=== PATIENT | female | born 1965 ===

== ENCOUNTER 2025-04-07 20:39 | Emergency (ER) | payer MEDICARE, SELFPAY ==
[2025-04-07] VITALS (13 sets, daily range): BP systolic 115–169; BP diastolic 71–98; PULSE 64–74; RESP 14–25; TEMP 36.6; O2SAT 97–100; BMI 39.6
--- NOTE | 2025-04-07 21:00 | EKG_ITS ---
[address] [address] Test Date: 2025-04-07 Pat Name: Jaylene Canseco Department: Room: Gender: Female Oven Attendant: VIOLETA : 1967-02-22 Requested By: Order Number: [id number] Reading MD: Alvaro Busch MD Measurements Intervals [place] Rate: 69 P: [place]: 164 QRS: -33 QRSD: 78 T: 173 QT: 400 QTc: 428 Interpretive Statements Normal sinus rhythm Left axis deviation Lateral infarct , age undetermined Inferior infarct , age undetermined NO PRIOR TRACING Electronically Signed On 04-08-2025 7:35:30 PDT by Alvaro Busch MD
--- NOTE | 2025-04-07 21:00 | DI.CT.S_ITS ---
PROCEDURE: CT STROKE INDICATIONS: Acute right-sided neurologic issues associated with severe TECHNIQUE: Noncontrast 4.5 mm thick angled axial sections acquired from the foramen magnum to the vertex, with coronal reformats. For radiation dose reduction, the following was used: automated exposure control, adjustment of mA and/or kV according to patient size. COMPARISON: None. FINDINGS: Image quality: CSF spaces: Basal cisterns are patent. No extra-axial fluid collections. Ventricles are normal in size and shape. Brain: No midline shift. No intracranial mass effect or hemorrhage. Mena- white matter interface is normal. There are atherosclerotic calcifications of the intracranial segments of the internal carotid arteries. Skull and face: Calvarium and visualized facial bones are intact, without suspicious lesions. Sinuses: Visualized sinuses and mastoids are clear. IMPRESSION: CT head without acute intracranial abnormalities. Findings were discussed with Dr. Senior at 2129 hrs. This study fulfills neurological imaging criteria for inclusion or exclusion of acute stroke therapies based on available published neurological imaging guidelines. Dictated by: Jose Schmid M.D. on 04/07/2025 at 21:28 Approved by: Jose Schmid M.D. on 04/07/2025 at 21:32
--- NOTE | 2025-04-07 21:01 | ED.HA ---
HPI - Headache General Chief Complaint: Headache Stated Complaint: vertigo Time Seen by Provider: 04/07/25 20:59 Mode of arrival: EMS History of Present Illness HPI Narrative: 58-year-old woman brought in by medics, was sitting on the couch playing games she acute onset of significant popping sensation needle like pain in the ear, severe tinnitus, vertigo to the point she is having trouble not vomiting, right pain in the face, headache. She feels that she was hyperventilating and was noticing some tingling on the right side of her lips isn't sure if that continues at this time. Fast negative per medics. Difficultly blood shot eyes. Code stroke was called Related Data Home Medications ?Medication ?Instructions ?Recorded ?Confirmed montelukast .ROUTE 04/07/25 valsartan PO 04/07/25 Allergies Allergy/AdvReac Type Severity Reaction Status Date / Time ibuprofen (From Motrin) Allergy Unknown Verified 04/07/25 20:48 Penicillins Allergy Unknown Verified 04/07/25 20:48 Review of Systems Review of Systems Narrative: Pertinent positive and negative findings as per HPI Exam Initial Vital Signs Initial Vital Signs: Vital Signs Temperature 97.8 F 04/07/25 20:38 Pulse Rate 69 04/07/25 20:38 Respiratory Rate 20 04/07/25 20:38 Blood Pressure 146/84 H 04/07/25 20:38 Pulse Oximetry 100 04/07/25 20:38 Oxygen Delivery Method Room Air 04/07/25 20:38 General: Frightened, blood shot eyes, attempting to be cooperative, in obvious pain HEENT: Moist mucous membranes, normal sclera with reactive pupils, extraocular eye movement is intact Neck: No JVD, supple Respiratory: Lungs are clear to auscultation, no wheezing no rales no rhonchi. Full and symmetrical air movement Cardiac: Regular rate and rhythm no murmurs no bruits Abdomen: Soft, nontender, no rebound or guarding, no flank pain Skin: Warm and dry, no rashes Neurologic: Grossly neurologically intact with no obvious asymmetries or abnormalities, NIH=0 Extremities: No trauma, well perfused Psych: Cooperative, appropriate insight and affect Course Orders Ordered: ED Orders 04/07/25 21:[address] angio head and neck Stat Urinalysis and Microscopic Stat Urine Drug Screen, Rapid Stat EKG-12 Lead Stat 04/07/25 21:10 Complete Blood Count AUTO DIFF Stat Comprehensive Metabolic Panel Stat PTT Partial Thromboplastin Baudilio Stat Prothrombin Time INR Stat Troponin & CK Cardiac Panel Stat Discontinued Medications Hydromorphone HCl (Hydromorphone 0.5 Mg Inj) 0.5 mg IV NOW ONE Stop: 04/07/25 21:02 Last Admin: 04/07/25 21:31 Dose: 0.5 mg Documented By: DIVINA Ondansetron HCl (Ondansetron 4 Mg/2 Ml Inj) 4 mg IV NOW ONE Stop: 04/07/25 21:01 Last Admin: 04/07/25 21:17 Dose: 4 mg Documented By: DIVINA Vital Signs Vital signs: Vital Signs - 8 hr 04/07/25 20:38 04/07/25 21:29 04/07/25 21:31 Temperature 97.8 F Pulse Rate 69 65 67 Respiratory Rate 20 25 H 21 Blood Pressure 146/84 H 146/88 H 169/98 H Pulse Oximetry 100 100 100 Oxygen Delivery Method Room Air Room Air 04/07/25 22:01 04/07/25 22:15 04/07/25 22:30 Temperature Pulse Rate 64 64 67 Respiratory Rate 16 20 18 Blood Pressure 134/71 135/72 136/86 Pulse Oximetry 99 98 99 Oxygen Delivery Method 04/07/25 22:45 04/07/25 23:00 04/07/25 23:14 Temperature Pulse Rate 66 64 65 Respiratory Rate 18 21 14 Blood Pressure 129/75 138/82 129/80 Pulse Oximetry 97 98 98 Oxygen Delivery Method Room Air 04/07/25 23:15 04/07/25 23:30 04/07/25 23:31 Temperature Pulse Rate 64 74 Respiratory Rate 16 21 Blood Pressure 115/74 Pulse Oximetry 97 98 Oxygen Delivery Method 04/07/25 23:31 04/07/25 23:46 04/07/25 23:46 Temperature Pulse Rate 71 70 Respiratory Rate 19 22 Blood Pressure 128/82 Pulse Oximetry 98 97 Oxygen Delivery Method 04/08/25 00:00 04/08/25 00:00 04/08/25 00:15 Temperature Pulse Rate 68 69 Respiratory Rate 20 20 Blood Pressure 127/82 Pulse Oximetry 98 97 Oxygen Delivery Method 04/08/25 00:15 04/08/25 00:30 06/19/25 00:30 Temperature Pulse Rate 69 Respiratory Rate 18 Blood Pressure 129/71 129/75 Pulse Oximetry 99 Oxygen Delivery Method MDM - Headache Lab Data 04/07/25 21:10 04/07/25 21:10 Labs: Lab Results 04/07/25 Range/Units 21:10 WBC 12.1 H (4.5-11.0) X10^3/uL RBC 4.42 (4.0-5.2) X10^6/uL Hgb 13.8 (12.0-16.0) g/dL Hct 40.9 (36-46) % MCV 92.7 (80-100) fL MCH 31.2 (26-34) PG MCHC 33.7 (30-36) % RDW 12.4 (11.6-14.8) % Plt Count 398 (150-400) X10^3/uL Neut % (Auto) 59.1 (50-75) % Lymph % (Auto) 30.6 (25-40) % [place] % (Auto) 7.2 (3-14) % Eos % (Auto) 1.3 L (2-4) % Baso % (Auto) 1.8 (0-2) % Neut # (Auto) 7100 H (3471-7177) /uL Lymph # (Auto) 3700 (7121-5835) /uL [place] # (Auto) 900 (0-900) /uL Eos # (Auto) 200 (0-450) /uL Baso # (Auto) 200 H (0-100) /uL PT 11.2 (9.4-12.5) SECONDS INR 1.0 (0.9-1.3) APTT 34 (25.1-36.5) SECONDS Sodium 141 (137-145) mmol/L Potassium 3.8 (3.4-5.1) mmol/L Chloride 104 (98-107) mmol/L Carbon Dioxide 25 (22-32) mmol/L BUN 24 H (7-17) mg/dL Creatinine 0.87 (0.52-1.04) mg/dL Estimated GFR > 60 (>60) mL/min BUN/Creatinine Ratio 27.6 H (6-22) Glucose 108 H (70-99) mg/dL Calcium 9.9 (8.4-10.2) mg/dL Total Bilirubin 0.6 (0.2-1.3) mg/dL AST 33 (14-36) IU/L ALT 18 (<35) IU/L Alkaline Phosphatase 57 (38-126) U/L Total Creatine Kinase 50 (30-135) U/L Troponin I < 0.012 (0.01-0.034) ng/mL Total Protein 8.1 (6.3-8.2) g/dL Albumin 4.9 (3.5-5.0) g/dL Globulin 3.2 (1.7-4.1) g/dL Albumin/Globulin Ratio 1.5 (1.0-2.8) Point of Care Testing Glucose POC [address] angiogram head and neck: Radiologist's Impression: PROCEDURE: CT ANGIO HEAD AND NECK INDICATIONS: Acute right-sided neurologic issues associated with severe TECHNIQUE: After the administration of intravenous contrast, 1 mm thick sections acquired from the aortic arch through the [place]. 3-dimensional wufvyaj-kzikjcqmr-hfsvqvfnea (MIP) and/or volume rendering reformats were acquired of the central intracranial vasculature and neck separately. For radiation dose reduction, the following was used: automated exposure control, adjustment of mA and/or kV according to patient size. COMPARISON: [facility], CT, CT STROKE, 04/07/2025, 21:07. FINDINGS: Image quality: Diagnostic. BRAIN: CSF spaces: Ventricles are normal in size and shape. Basal cisterns are patent. No extra-axial fluid collections. Brain: No midline shift. No intracranial masses. No suspicious enhancement. Mena-white matter interface appears intact. Skull and face: Calvarium and facial bones appear intact, without suspicious lesions. Orbits appear normal. Sinuses: Sinuses and mastoids are clear. HEAD CT ANGIOGRAPHY: Anterior circulation: Intracranial internal carotid arteries appear patent without high-grade stenosis. There is flow/opacification within the paired anterior cerebral arteries. There is opacification within the middle cerebral arteries. The anterior communicating artery is seen. No aneurysms are seen. No occlusion. Posterior circulation: Visualized portions of the vertebral arteries are patent and join to form a normal appearing basilar artery. No evidence for high-grade stenosis. No occlusions. There is opacification of the posterior cerebral arteries. No aneurysms are seen. NECK CT ANGIOGRAPHY: Carotid system: The great vessels demonstrate a conventional anatomy as they arise from the aortic arch. The origins of the common carotid arteries appear patent. The common carotid arteries appear patent throughout their visualized courses without high grade stenosis. The bifurcation regions are both patent without high grade stenosis. The internal carotid arteries demonstrate normal calibers and courses. Posterior circulation: The origins of the vertebral arteries both appear patent without hemodynamically significant stenosis. The more superior extracranial portions of both vertebral arteries also demonstrate normal courses and calibers. They join to form a normal appearing basilar artery. Soft tissues: Visualized neck soft tissues demonstrate no suspicious abnormalities. Bones: No suspicious bony lesions. Straightening of cervical lordosis. No acute compression fractures of the vertebral bodies. IMPRESSION: No significant intracranial arterial abnormality is seen. No significant abnormality is seen within the arteries of the neck. Mild straightening of normal cervical lordosis likely related to positioning and/or concurrent muscle spasms. If there is persistent or high clinical suspicion for acute cerebrovascular ischemia/stroke, more sensitive evaluation with brain MRI can be considered. Any quantitative measurements of stenosis were performed using NASCET criteria. Dictated by: Jose Schmid M.D. on 04/07/2025 at 22:01 MDM Narrative Medical decision making narrative: CC: Acute onset severe lancinating right-sided pain, acute dizziness, nausea Complicating co-morbidities: Hypertension Data collected from: patient Differential considered: Intracranial bleed, acute stroke, carotid dissection, migraine headache, eardrum ruptures Exam documented above, pertinent findings include: Patient is obviously in pain, NIH is 0, Lab Test results independently reviewed as above. Pertinent findings: CBC is unremarkable Chemistries show appropriate renal function, no liver abnormalities Troponin is undetectable Independently reviewed EKG: Sinus rhythm rate of 69. No acute ischemic change Imaging studies independently reviewed: CT scan of the head is unremarkable CT angiogram of the head and neck shows no obvious vascular abnormality Re-evaluations: With re-evaluation patient was feeling back to her baseline. We had a long discussion regarding her dizziness and tinnitus. She is chronically debilitated only dizzy to the point she has not been able to drive or do activities of daily living unassisted for the last 5 years. She has had multiple scans, consultations specialty consults follows with the ENT, has done physical therapy and still is unrelenting problems. Discussion: 58-year-old woman with chronic severe dizziness and tinnitus with acute onset severe right-sided head pain associated with a loud pop and dramatic vertiginous dizziness and tinnitus question of right lip numbness. Code stroke was called on arrival CT scan and CT angiogram of the head and neck are both unremarkable. Workup is absolutely normal. She received half a mg of Dilaudid for pain control. No longer having headache, her physical exam is back to her baseline, still with low-grade dizziness. No sign of ruptured tympanic membrane obvious infection or other new finding that would require further imaging or hospitalization today. Her last consultation with ENT was about a month and a half and unfortunately I do not have anything to suggest to help with the chronic dizziness. Findings reviewed with her and she will be discharged Critical Care Time Critical Care Time Critical Care Time: Yes Total Critical Care Time: 33 Attestation: Critical care time is separate from other billable procedures. There is a high probability of a significant, sudden or life-threatening deterioration that requires my full and direct attention, intervention and personal management. This critical care time includes consultation with family and other consulting doctors, review of records, and interpretation of data from labs, EKGs and imaging as well as managements of acute neurologic emergency with concern for life-threatening intracranial bleed Discharge Plan Departure Patient Disposition: Home Clinical Impression: Headache, primary thunderclap Activity Restrictions/Additional Instructions: Thank you for coming in today With your initial presentation in the dramatic pain my initial concern was for bleeding inside your brain. There was no bleeding inside your brain, I so no masses tumors, excessive pressure, we looked at all of the blood vessels from the top of your heart to the top of your head and they are all open and flowing appropriately. All of your blood test showed normal red blood cells no signs of infection, no signs of a heart attack. Renal function electrolytes and liver functions are all unremarkable. Your EKG was reassuring. Now that you are feeling better and bacteria baseline I do believe that discharge home is safe. I wish I had additional suggestions for your chronic dizziness but it does sound like you have had excellent care follow up and consultation. I wish you the best in continuing to manage your dizziness If you find that you are getting worse or develop any new symptoms, please feel free to return to the emergency department for further evaluation. Prescriptions: No Action montelukast [Singulair] .ROUTE valsartan PO Stand Alone Forms: Patient Portal/API
[2025-04-07] MEDS: ONDANSETRON 4 MG/2 ML INJ IV (21:17)
[2025-04-07 21:26] LABS: Add Manual Diff / Slide Review NO; Basophils Absolute Auto 200 /uL (0-100); Basophils Percent Auto 1.8 % (0-2); Eosinophils Absolute Auto 200 /uL (0-450); Eosinophils Percent Auto 1.3 % (2-4); Hematocrit 40.9 % (36-46); Hemoglobin 13.8 g/dL (12.0-16.0); Lymphocytes Absolute Auto 3700 /uL (1100-4500); Lymphocytes Percent Auto 30.6 % (25-40); Mean Corpuscular HGB Conc 33.7 % (30-36); Mean Corpuscular Hemoglobin 31.2 PG (26-34); Mean Corpuscular Volume 92.7 fL (80-100); Monocytes Absolute Auto 900 /uL (0-900); Monocytes Percent Auto 7.2 % (3-14); Neutrophils Absolute Auto 7100 /uL (1500-7000); Neutrophils Percent Auto 59.1 % (50-75); Platelet Count 398 X10^3/uL (150-400); Red Blood Cell Count 4.42 X10^6/uL (4.0-5.2); Red Cell Distribution Width 12.4 % (11.6-14.8); White Blood Cell Count 12.1 X10^3/uL (4.5-11.0)
[2025-04-07] MEDS: HYDROMORPHONE 0.5 MG INJ IV (21:31)
[2025-04-07 21:36] LABS: Prothrombin Time 11.2 SECONDS (9.4-12.5)
[2025-04-07 21:39] LABS: PTT Partial Thromboplastin Tim 34 SECONDS (25.1-36.5)
[2025-04-07 21:40] LABS: Alanine Aminotransferase 18 IU/L (<35); Albumin 4.9 g/dL (3.5-5.0); Albumin Globulin Ratio 1.5 (1.0-2.8); Alkaline Phosphatase 57 U/L (38-126); Aspartate Aminotransferase 33 IU/L (14-36); BUN Creatinine Ratio 27.6 (6-22); Bilirubin Total 0.6 mg/dL (0.2-1.3); Blood Urea Nitrogen 24 mg/dL (7-17); Calcium 9.9 mg/dL (8.4-10.2); Carbon Dioxide 25 mmol/L (22-32); Chloride 104 mmol/L (98-107); Creatine Kinase 50 U/L (30-135); Estimated Glomerular Filt Rate > 60 mL/min (>60); Globulin 3.2 g/dL (1.7-4.1); Glucose 108 mg/dL (70-99); Potassium 3.8 mmol/L (3.4-5.1); Sodium 141 mmol/L (137-145); Total Protein 8.1 g/dL (6.3-8.2)
[2025-04-07 21:49] LABS: HEMOLYSIS 97 (0-50)
[2025-04-07 21:52] LABS: Troponin I < 0.012 ng/mL (0.01-0.034)
--- NOTE | 2025-04-07 21:57 | PC.NURSE ---
Patient reports tinnitus has improved to only being minimally noticeable and she states her nausea and pain have improved but still having 3/10 R sided head/face/neck pain and states still feeling some nausea. Patient no longer retching. Patient still expresses that with any position changes, her symptoms dramatically worsen.
[2025-04-08] VITALS: BP 127/82; PULSE 68; RESP 20; O2SAT 98
[2025-04-08 00:15] VITALS: BP 129/71; PULSE 69; RESP 20; O2SAT 97
[2025-04-08 00:30] VITALS: BP 129/75; PULSE 69; RESP 18; O2SAT 99
--- NOTE | 2025-04-08 00:32 | PC.NURSE ---
pt requested to sit up in a chair for comfort, recliner moved to room and pt assisted to chair, dizziness noted with standing. pt placed in chair and given warm blanket for comfort
[2025-04-08 00:45] VITALS: BP 128/71; PULSE 67; RESP 20; O2SAT 99
[2025-04-08 01:00] VITALS: BP 131/73; PULSE 67; RESP 17; O2SAT 97
[2025-04-08 01:16] VITALS: BP 156/77; PULSE 79; RESP 23; O2SAT 97
== END 2025-04-08 01:31 | disposition home or self-care (01) ==
PROVIDERS: Emergency Provider Emergency Medicine
DX: G44.53 Primary thunderclap headache (principal)
CPT/HCPCS: 36415; 70450; 70496; 70498; 80053; 82550; 82962; 84484; 85025; 85610; 85730; 93005; 93010; 96374; 96375; 99285; 99291; J1171; J2405; Q9967